=== PATIENT | male | born 1990 | race Caucasian/White ===

== ENCOUNTER 2024-04-18 05:21 | Emergency (ER) | payer OTHER, SELFPAY ==
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
[2024-04-18 05:29] VITALS: BP 117/80; PULSE 72; O2SAT 98
[2024-04-18 05:39] VITALS: BMI 27.5
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
[2024-04-18 06:18] VITALS: BP 103/61; PULSE 83; RESP 16; TEMP 36.6; O2SAT 97
[2024-04-18] MEDS: Morphine Sulfate Immed Release 15 MG TABLET PO (06:21)
[2024-04-18] MEDS: diazePAM 2 MG TABLET PO (06:22)
[2024-04-18] MEDS: Ketorolac Tromethamine 30 MG/ML VIAL IM (09:10)
[2024-04-18] MEDS: Cyclobenzaprine HCl 10 MG TABLET PO (09:10)
[2024-04-18 09:34] VITALS: BP 110/78; PULSE 71; RESP 16; TEMP 36.4; O2SAT 98
== END 2024-04-18 09:35 | disposition home or self-care (01) ==
PROVIDERS: Emergency Provider Emergency Medicine
DX: M54.16 Radiculopathy, lumbar region (principal); M54.50 Low back pain, unspecified
CPT/HCPCS: 72100; 96372; 99284; J1885